=== PATIENT | female | born 1950 | race Caucasian/White ===

== ENCOUNTER 2019-08-28 09:27 | Day surgery (SDC) | payer MEDICARE ==
[~2019-08-28] VITALS: Ht 152.4 cm; Wt 83.2 kg
[2019-08-28] VITALS (22 sets, daily range): BP systolic 75–113; BP diastolic 44–85
[2019-08-28] MEDS ORDERED: MIDAZolam 5mg/ml 2ml vial IV ONE (09:55)
[2019-08-28] MEDS ORDERED: normal saline 1000ml 1,000 ML IV SCH (09:55)
[2019-08-28] MEDS ORDERED: fentaNYL/PF 50MCG/1 ML 2ML syringe IV ONE (09:55)
[2019-08-28] MEDS ORDERED: OXYB10TA4 PO (12:03)
[2019-08-28] MEDS ORDERED: HYDR-4353 PO (12:03)
[2019-08-28] MEDS ORDERED: HYDR5TAB PO (12:03)
[2019-08-28] MEDS ORDERED: CALC-336 PO (12:03)
[2019-08-28] MEDS ORDERED: AMLO10TA PO (12:03)
[2019-08-28] MEDS ORDERED: METO-539 PO (12:03)
[2019-08-28] MEDS ORDERED: FLUT1AER PO (12:03)
[2019-08-28] MEDS ORDERED: FURO-149 PO (12:03)
[2019-08-28] MEDS ORDERED: TIZA4CAP PO (12:03)
[2019-08-28] MEDS ORDERED: APIX5TAB3 PO (12:03)
[2019-08-28] MEDS ORDERED: PHYT100T PO (12:03)
[2019-08-28] MEDS ORDERED: DULO60CA45 PO (12:03)
[2019-08-28] MEDS ORDERED: THY60T PO (12:03)
[2019-08-28] MEDS ORDERED: PREG50CA PO (12:03)
[2019-08-28] MEDS ORDERED: MAGN400C PO (12:03)
[2019-08-28] MEDS ORDERED: FLEC50TA PO (12:03)
[2019-08-28] MEDS ORDERED: MULT1TAB74 PO (12:03)
[2019-08-28] MEDS ORDERED: CHOL50004 PO (12:03)
[2019-08-28] MEDS ORDERED: VALS320T2 PO (12:03)
[2019-08-28] MEDS ORDERED: VARE0.5T PO (12:03)
[2019-08-28] MEDS ORDERED: ALBU8.5H8 INH (12:03)
[2019-08-28] MEDS ORDERED: ASCO10007 PO (12:03)
[2019-08-28 12:33] LABS: BASOPHILS % (AUTO) 0.5 % (0-1); EOSINOPHILS # (AUTO) 0.1 X10'3 (0-0.9); EOSINOPHILS % (AUTO) 2.8 % (0-6); HEMOGLOBIN 14.7 g/dl (12.0-16.0); LYMPHOCYTES # (AUTO) 1.5 X10'3 (1.1-4.8); LYMPHOCYTES % (AUTO) 31.2 % (21-51); MEAN CORPUSCULAR HEMOGLOBIN 30.2 PG (27.0-31.0); MEAN CORPUSCULAR HGB CONC 34.1 g/dL (33.0-36.5); MEAN CORPUSCULAR VOLUME 88.5 FL (78-98); MEAN PLATELET VOLUME 8.7 FL (7.4-10.4); MONOCYTES # (AUTO) 0.5 X10'3 (0-0.9); MONOCYTES % (AUTO) 10.1 % (2-12); NEUTROPHILS # (AUTO) 2.7 X10'3 (1.8-7.7); NEUTROPHILS % (AUTO) 55.4 % (42-75); PLATELET COUNT 164 X10'3 (140-440); RED BLOOD COUNT 4.86 X10'6 (4.20-5.60); RED CELL DISTRIBUTION WIDTH 16.9 % (11.5-14.5); WHITE BLOOD COUNT 4.9 X10'3 (4.5-11.0)
[2019-08-28 12:53] LABS: ALBUMIN 3.4 G/DL (3.4-5.0); ANION GAP 6 (8-16); BLOOD UREA NITROGEN 19 MG/DL (7-18); BUN/CREATININE RATIO 28.8 (6.6-38.0); CALCIUM 8.6 MG/DL (8.5-10.1); CHLORIDE 108 MMOL/L (99-107); CREATININE 0.66 MG/DL (0.40-0.90); GLUCOSE 117 MG/DL (70-104); MAGNESIUM 1.9 MG/DL (1.5-2.4); POTASSIUM 4.3 MMOL/L (3.5-5.1); SODIUM 142 MMOL/L (135-145); TOTAL CARBON DIOXIDE 27.9 MMOL/L (24-32); eGFR 89 ML/MIN
[2019-08-28] MEDS ORDERED: glycopyrrolate 0.2mg/ml inj IV ONE (17:15)
== END 2019-08-28 17:45 | disposition home or self-care (01) ==
LOC: SSTAY O 09:27
PROVIDERS: ATTEND Internal Medicine Cardiovascular Disease
DX: I48.91 Unspecified atrial fibrillation (principal); I10 Essential (primary) hypertension; E03.9 Hypothyroidism, unspecified; J44.9 Chronic obstructive pulmonary disease, unspecified; M19.90 Unspecified osteoarthritis, unspecified site; E66.9 Obesity, unspecified; Z68.36 Body mass index [BMI] 36.0-36.9, adult; Z98.890 Other specified postprocedural states; Z79.899 Other long term (current) drug therapy; Z88.0 Allergy status to penicillin
CPT/HCPCS: 36415; 80048; 83735; 85025; 85610; 92960; 93005; J2250; J3010; J7030; J3490

== ENCOUNTER 2019-10-16 10:52 | Day surgery (SDC) | payer MEDICARE ==
[2019-10-16] VITALS (7 sets, daily range): BP systolic 83–127; BP diastolic 55–87
[~2019-10-16] VITALS: Ht 152.4 cm; Wt 86.3 kg
[~2019-10-16 10:52] MED LIST: ALBU8.5H8 INH; AMLO10TA PO; APIX5TAB3 PO; ASCO10007 PO; CALC-336 PO; CHOL50004 PO; DULO60CA45 PO; FLEC50TA PO; FLUT1AER PO; FURO-149 PO; HYDR-4353 PO; HYDR5TAB PO; MAGN400C PO; METO-539 PO; MULT1TAB74 PO; OXYB10TA4 PO; PHYT100T PO; PREG50CA PO; THY60T PO; TIZA4CAP PO; VALS320T2 PO; VARE0.5T PO
[2019-10-16] MEDS ORDERED: normal saline 1000ml 1,000 ML IV SCH ×2 (11:25→14:25)
[2019-10-16] MEDS ORDERED: fentaNYL/PF 50MCG/1 ML 2ML syringe ONE ×2 (11:53→12:39)
[2019-10-16] MEDS ORDERED: LIDOcaine 1% W/epiNEPHrine 1:100,000 20ml vial ONE ×2 (11:53→12:39)
[2019-10-16] MEDS ORDERED: vancomycin 1,000mg inj ONE ×2 (11:53→11:54)
[2019-10-16] MEDS ORDERED: midazolam 2 mg/2 ml injection ONE ×6 (11:53→13:27)
[2019-10-16] MEDS ORDERED: ceFAZolin 1000mg inj ONE (11:54)
[2019-10-16 11:58] LABS: EOSINOPHILS # (AUTO) 0.1 X10'3 (0-0.9); LYMPHOCYTES # (AUTO) 1.9 X10'3 (1.1-4.8); LYMPHOCYTES % (AUTO) 26.8 % (21-51); MEAN PLATELET VOLUME 8.8 FL (7.4-10.4); NEUTROPHILS # (AUTO) 4.4 X10'3 (1.8-7.7)
[2019-10-16 11:59] LABS: BASOPHILS % (AUTO) 0.5 % (0-1); EOSINOPHILS % (AUTO) 1.5 % (0-6); HEMATOCRIT 48.7 % (35.0-45.0); HEMOGLOBIN 16.9 g/dl (12.0-16.0); MEAN CORPUSCULAR HEMOGLOBIN 31.7 PG (27.0-31.0); MEAN CORPUSCULAR HGB CONC 34.8 g/dL (33.0-36.5); MONOCYTES # (AUTO) 0.5 X10'3 (0-0.9); NEUTROPHILS % (AUTO) 63.2 % (42-75); PLATELET COUNT 179 X10'3 (140-440); RED BLOOD COUNT 5.35 X10'6 (4.20-5.60); RED CELL DISTRIBUTION WIDTH 15.5 % (11.5-14.5); WHITE BLOOD COUNT 6.9 X10'3 (4.5-11.0)
[2019-10-16 12:04] LABS: PARTIAL THROMBOPLASTIN TIME 26 SECONDS (22-32)
[2019-10-16 12:09] LABS: ALANINE AMINOTRANSFERASE 32 U/L (12-78); ALKALINE PHOSPHATASE 68 IU/L (46-116); ANION GAP 8 (8-16); ASPARTATE AMINO TRANSFERASE 25 U/L (10-37); BILIRUBIN,TOTAL 0.9 MG/DL (0.1-1.0); BLOOD UREA NITROGEN 20 MG/DL (7-18); BUN/CREATININE RATIO 27.8 (6.6-38.0); CALCIUM 9.4 MG/DL (8.5-10.1); CHLORIDE 103 MMOL/L (99-107); CREATININE 0.72 MG/DL (0.40-0.90); GLUCOSE 130 MG/DL (70-104); MAGNESIUM 1.8 MG/DL (1.5-2.4); POTASSIUM 4.2 MMOL/L (3.5-5.1); SODIUM 140 MMOL/L (135-145); TOTAL CARBON DIOXIDE 28.6 MMOL/L (24-32); TOTAL PROTEIN 7.9 G/DL (6.4-8.2); eGFR 80 ML/MIN
[2019-10-16] MEDS ORDERED: iohexol 350 MG/ML 50ML vial IV ONE (12:32)
[2019-10-16] MEDS ORDERED: amiodarone/D5 360MG/200ML BAG 200 ML IV ONE (12:54)
== END 2019-10-16 16:30 | disposition home or self-care (01) ==
LOC: SSTAY O 10:52
PROVIDERS: ATTEND Internal Medicine Cardiovascular Disease
DX: I49.5 Sick sinus syndrome (principal); I10 Essential (primary) hypertension; E03.9 Hypothyroidism, unspecified; I48.19 Other persistent atrial fibrillation; J44.9 Chronic obstructive pulmonary disease, unspecified; M19.90 Unspecified osteoarthritis, unspecified site; E66.9 Obesity, unspecified; Z68.36 Body mass index [BMI] 36.0-36.9, adult; Z79.01 Long term (current) use of anticoagulants; Z98.890 Other specified postprocedural states; Z79.899 Other long term (current) drug therapy; Z72.89 Other problems related to lifestyle; Z87.891 Personal history of nicotine dependence; Z88.0 Allergy status to penicillin
CPT/HCPCS: 33208; 36415; 71046; 80053; 83735; 85025; 85610; 85730; 93005; 99152; 99153; C1894; C1898; J0690; J2250; J3010; J3370; J7030; J7050; Q9967; A4565; C1785

== ENCOUNTER 2021-10-31 07:23 | Day surgery (SDC) | payer MEDICARE ==
[~2021-10-31] VITALS: Ht 345.2 cm; Wt 75.9 kg
[~2021-10-31 07:23] MED LIST changes: -ALBU8.5H8 INH; +ASCO100031 PO; -ASCO10007 PO; -CHOL50004 PO; -DULO60CA45 PO; +DULO60CA60 PO; -FLEC50TA PO; -FLUT1AER PO; -FURO-149 PO; +MULT-620 PO; -MULT1TAB74 PO
[2021-10-31 07:33] VITALS: BP 166/100
[2021-10-31] MEDS ORDERED: FLEC100T35 PO (07:54)
[2021-10-31] MEDS ORDERED: MIDAZolam 1 MG/ML 5ML VIAL ONE (08:21)
[2021-10-31] MEDS ORDERED: fentaNYL/PF 50MCG/1 ML 2ML syringe ONE (08:21)
[2021-10-31 09:12] VITALS: BP 113/59
[2021-10-31 09:22] VITALS: BP 114/68
[2021-10-31 09:32] VITALS: BP 117/80
[2021-10-31 09:42] VITALS: BP 94/58
== END 2021-10-31 10:05 | disposition home or self-care (01) ==
LOC: GI LAB 07:23
PROVIDERS: ATTEND Internal Medicine Gastroenterology
DX: R19.7 Diarrhea, unspecified (principal); R63.4 Abnormal weight loss; K62.1 Rectal polyp; K57.30 Diverticulosis of large intestine without perforation or abscess without bleeding; I25.2 Old myocardial infarction; F17.210 Nicotine dependence, cigarettes, uncomplicated; Z95.0 Presence of cardiac pacemaker; Z79.01 Long term (current) use of anticoagulants; Z88.0 Allergy status to penicillin; Z88.8 Allergy status to other drugs, medicaments and biological substances; Z91.030 Bee allergy status; Z79.899 Other long term (current) drug therapy
CPT/HCPCS: 45380; 45385; 88305; 88313; 99153; C1773; G0500; J2250; J3010; J7040; Z7512; 99152; A4620